=== PATIENT | male | born 1985 | race Caucasian/White ===

== ENCOUNTER 2020-10-12 11:22 | Emergency (ER) | payer BC ==
[~2020-10-12] VITALS: Ht 180.3 cm; Wt 84.4 kg
[2020-10-12 13:13] LABS: VENOUS BASE EXCESS -2.4 (-2.0-2.0); VENOUS HCO3 23.6 MEQ/L (23.0-27.0); VENOUS O2 SATURATION 77.2 % (60.0-80.0); VENOUS PARTIAL PRESSURE CO2 44.8 mmHg (38.0-50.0); VENOUS PARTIAL PRESSURE O2 43.1 mmHg (30.0-50.0); VENOUS PH 7.339 UNITS (7.330-7.430); VENOUS STANDARD HCO3 21.9 MEQ/L; VENOUS TOTAL CO2 24.9 MEQ/L (24.0-28.0)
[2020-10-12 13:15] LABS: BASO % 0.5 % (0.0-1.0); EOS % 0.4 % (0.0-3.0); HEMATOCRIT 52.2 % (42.0-52.0); HEMOGLOBIN 16.7 g/dl (13.5-17.5); LYMPH # 1.1 10^3/uL (1.5-5.0); MEAN CORPUSCULAR HEMOGLOBIN 30.4 pg (27.0-33.0); MEAN CORPUSCULAR VOLUME 95.1 fl (80.0-96.0); MONO # 0.5 10^3/uL (0.0-0.8); MONO % 6.6 % (0.0-5.0); NEUTROPHILS # 6.5 10^3/uL (1.5-8.5); NEUTROPHILS % 79.3 % (36.0-66.0); PLATELET COUNT, AUTOMATED 346 10^3/uL (150-450); RED BLOOD COUNT 5.49 10^6/uL (4.30-6.10); WHITE BLOOD COUNT 8.2 10^3/uL (4.0-10.0)
--- NOTE | 2020-10-12 13:25 | REP ---
INDICATION: Syncope/near-syncope COMPARISON: None. TECHNIQUE: Portable AP view of the chest FINDINGS: The mediastinum and cardiac silhouette are within normal limits for portable technique. The lung de dios are clear without acute consolidation, effusion, or pneumothorax. Skeletal structures are intact. IMPRESSION: No acute cardiopulmonary process appreciated. <Electronically signed by Home Johnson > 10/12/20 [id number]
[2020-10-12 13:26] LABS: INR 0.95; PROTHROMBIN TIME 12.9 SECONDS (12.5-14.3)
[2020-10-12 13:39] LABS: HEMOGLOBIN A1c 5.4 %
[2020-10-12 13:48] LABS: RSV AMPLIFICATION NEGATIVE (NEGATIVE)
[2020-10-12 13:50] LABS: AMPHETAMINES LEVEL URINE NEGATIVE (NEGATIVE); BARBITURATES URINE NEGATIVE (NEGATIVE); BENZODIAZEPINES URINE NEGATIVE (NEGATIVE); CANNABINOIDS URINE NEGATIVE (NEGATIVE); COCAINE METABOLITE URINE NEGATIVE (NEGATIVE); METHADONE URINE NEGATIVE (NEGATIVE); OPIATES URINE NEGATIVE (NEGATIVE); PHENCYCLIDINE URINE NEGATIVE (NEGATIVE)
[2020-10-12 14:09] LABS: BLOOD UREA NITROGEN 9 MG/DL (7-18); CALCIUM LEVEL 9.1 MG/DL (8.5-10.1); CARBON DIOXIDE LEVEL 27 MEQ/L (21-32); CHLORIDE LEVEL 108 MEQ/L (98-107); CPK CREATINE PHOSPHOKINASE 106 U/L (39-308); CREATININE FOR GFR 1.01 MG/DL (0.70-1.30); ETHYL ALCOHOL (ETHANOL) < 0.003 % (0.000-0.010); GLOMERULAR FILTRATION RATE > 60.0 (>60); GLUCOSE, FASTING 98 MG/DL (70-100); MAGNESIUM LEVEL 2.3 MG/DL (1.8-2.4); MB/CK RELATIVE INDEX 0.94 (< OR =4); POTASSIUM SERUM 4.4 MEQ/L (3.5-5.1); SODIUM LEVEL 140 MEQ/L (136-145); THYROID STIMULATING HORMONE 0.906 uIU/ML (0.358-3.740); TROPONIN I < 0.02 NG/ML (< 0.10)
--- NOTE | 2020-10-12 14:10 | REP ---
INDICATION: Syncope COMPARISON: None. TECHNIQUE: Axial noncontrast images from the skull base to the vertex with coronal reformations. This CT examination was performed using the following dose reduction techniques: Automated exposure control, adjustment of mA and/or kv according to the patient's size, and use of iterative reconstruction technique. FINDINGS: The ventricles, sulci, and cisterns are normal in position and appearance. Zepeda-white differentiation is maintained. No acute intracranial hemorrhage, mass/mass effect, pathology or trauma/injury. No evidence for acute infarction. No extra-axial fluid collection. Calvarium is intact. Paranasal sinuses and mastoid air cells are clear. There is subtle low density in the left cerebellopontine level which is likely artifactual as there is no associated mass effect or edema. However, clinical correlation is recommended and if necessary MRI should be considered for further investigation. IMPRESSION: 1. No evidence for acute intracranial pathology or trauma/injury. 2. Vague low-density area along the left cerebellopontine level may be artifactual. Clinical correlation is recommended. If necessary consider follow-up MRI for further investigation. <Electronically signed by Home Johnson > 10/12/20 2051
[2020-10-12 16:09] VITALS: BP 130/80
--- NOTE | 2020-10-13 08:51 | ED PDOC ---
Post-Departure Follow-Up radiology eport facxed to dona m[facility] Barbara Llamas MD Oct 13, 2020 08:51
--- NOTE | 2020-10-13 09:20 | ECGEPIP ---
[facility] - ED Test Date: 2020-10-12 Pat Name: SEGUN LATIF Department: Room: - Gender: Male [place]: SILVANA : 1985 Requested By: Barbara Llamas Order Number: [id number] Reading MD: Barbara Llamas Measurements Intervals [place] Rate: 60 P: 63 ND: 145 QRS: 73 QRSD: 106 T: 14 QT: 403 QTc: 404 Interpretive Statements SINUS RHYTHM POSSIBLE LEFT ATRIAL ENLARGEMENT No prior Electronically Signed on 10-13-2020 9:19:45 EST by Barbara Llamas
== END 2020-10-12 16:11 | disposition home or self-care (01) ==
LOC: M ED 11:22
DX: G62.9 Polyneuropathy, unspecified (principal); F17.210 Nicotine dependence, cigarettes, uncomplicated
CPT/HCPCS: 36415; 70450; 71045; 80048; 80307; 82550; 82553; 82803; 83036; 83735; 84443; 85025; 85610; 87631; 93005; 93041; 99285; G0480

== ENCOUNTER → 2021-05-21 | Outpatient (CLI) | payer BC ==
--- NOTE | 2021-05-21 22:37 | ECHO ---
"ECHOCARDIOGRAM DATE OF PROCEDURE: 05/21/2021 Age: 35 Gender: Male Height: 180 cm Weight: 89 kg REFERRING PHYSICIAN: Dr. Kyara Sinclair INDICATION: Cardiomegaly, palpitations. MEASUREMENTS: | IVS 1.0 cm LV 4.9 cm LVPW 1.0 cm LA 2.6 cm Aorta 3.6 cm Left atrium volume index 14 Mitral E wave velocity 56 A wave 42 E prime septal 9.5 E prime lateral 14.7 FINDINGS: This study is of good technical quality, patient is in sinus rhythm. Normal LV size with normal LV systolic function. Calculated LVEF 59%. Normal RV size and systolic function. Both atria are normal. Aortic, mitral, tricuspid and pulmonic valves were all well seen and appear normal. No pericardial effusion is noted. Inferior vena cava is normal size and appropriately collapses with inspiration indicative of normal central venous pressure. Aortic root, aortic arch and visualized segment of abdominal aorta appear normal. Doppler interrogation reveals competent aortic, mitral, tricuspid and pulmonic valves. Mitral inflow pattern and tissue Doppler imaging of mitral annulus revealed normal diastolic function. CONCLUSIONS: 1. Study is of acceptable technical quality; underlying sinus rhythm. 2. Normal LV size, systolic and diastolic function. Calculated LVEF of 59%. 3. No valvular disease. 4. Normal central venous pressure. 5. Unable to estimate pulmonary artery pressure, but no signs to suggest pulmonary hypertension. 6. Normal echocardiogram."
== END ==
LOC: M CARPUL 08:09
PROVIDERS: ATTEND Physician Assistant
DX: I51.7 Cardiomegaly (principal); R55 Syncope and collapse; R00.2 Palpitations

== ENCOUNTER → 2021-05-28 | Outpatient (CLI) | payer BC ==
[~2021-05-28] MED LIST: PROHANCE 279.3MG/ML 15ML VIAL As Ordered ONE; PROHANCE 279.3MG/ML 5ML VIAL As Ordered ONE
--- NOTE | 2021-05-28 20:19 | REPVR ---
PROCEDURE INFORMATION: Exam: MR Head Without and With Contrast Exam date and time: 05/28/2021 4:46 PM Age: 35 years old Clinical indication: Pain; Headache; Migraine; Aura effect not specified; Additional info: Pre syncope, abn CT scan head, HX migraine TECHNIQUE: Imaging protocol: MR of the head without and with intravenous contrast. Contrast material: PROHANCE; Contrast volume: 18 ml; Contrast route: INTRAVENOUS (IV); COMPARISON: CT Head without contrast 10/12/2020 1:49 PM FINDINGS: Brain: Normal. No acute infarct. No hemorrhage. No significant white matter disease. No edema. There is no abnormal enhancement. Cerebral ventricles: Normal. No ventriculomegaly. Bones/joints: Unremarkable. Paranasal sinuses: Normal as visualized. No acute sinusitis. Mastoid air cells: Normal as visualized. No mastoid effusion. Orbital cavity: Unremarkable. Soft tissues: Unremarkable. IMPRESSION: No acute findings. Electronically signed by: Sukhdev Gregg On 05/28/2021 20:19:17 PM
--- NOTE | 2021-05-28 20:21 | REPVR ---
PROCEDURE INFORMATION: Exam: MRA Head Without Contrast; Arteriography Exam date and time: 05/28/2021 4:46 PM Age: 35 years old Clinical indication: Pain; Headache; Additional info: Pre syncope, abn CT scan head, HX migraine TECHNIQUE: Imaging protocol: Magnetic resonance angiography head without contrast. Exam focused on the arteries. COMPARISON: CT Head without contrast 10/12/2020 1:49 PM FINDINGS: ANTERIOR CIRCULATION: Right internal carotid artery: Intracranial segment is patent with no significant stenosis. No aneurysm. Right middle cerebral artery: No occlusion or significant stenosis. No aneurysm. Right anterior cerebral artery: No occlusion or significant stenosis. No aneurysm. Left internal carotid artery: Intracranial segment is patent with no significant stenosis. No aneurysm. Left middle cerebral artery: No occlusion or significant stenosis. No aneurysm. Left anterior cerebral artery: No occlusion or significant stenosis. No aneurysm. POSTERIOR CIRCULATION: Right vertebral artery: No occlusion or significant stenosis. No aneurysm. Left vertebral artery: No occlusion or significant stenosis. No aneurysm. Basilar artery: No occlusion or significant stenosis. No aneurysm. Right posterior cerebral artery: No occlusion or significant stenosis. No aneurysm. Left posterior cerebral artery: No occlusion or significant stenosis. No aneurysm. IMPRESSION: No stenosis or occlusion. Electronically signed by: Sukhdev Gregg On 05/28/2021 20:21:16 PM
== END ==
LOC: M RAD 14:54
PROVIDERS: ATTEND Physician Assistant
DX: R55 Syncope and collapse (principal); R93.0 Abnormal findings on diagnostic imaging of skull and head, not elsewhere classified; R09.89 Other specified symptoms and signs involving the circulatory and respiratory systems; Z86.69 Personal history of other diseases of the nervous system and sense organs
CPT/HCPCS: 70544; 70553; A9576

== ENCOUNTER → 2024-06-06 | Outpatient (REF) | payer BC ==
[~2024-06-06] MED LIST changes: +CEPH500C PO; +CLAR10CA3 PO; -PROHANCE 279.3MG/ML 15ML VIAL As Ordered ONE; -PROHANCE 279.3MG/ML 5ML VIAL As Ordered ONE
== END ==
LOC: M SFHCDERM 17:10
PROVIDERS: ATTEND Nurse Practitioner Family
DX: L85.9 Epidermal thickening, unspecified (principal)

== ENCOUNTER → 2025-07-26 | Outpatient (CLI) | payer BC | LOC: M ADAMS 13:46 | PROVIDERS: ATTEND Physician Assistant | DX: M54.50 Low back pain, unspecified (principal); M54.6 Pain in thoracic spine ==

== ENCOUNTER → 2025-08-22 | Outpatient (CLI) | payer BC ==
[2025-08-22 16:47] LABS: PLATELET COUNT, AUTOMATED 311 10^3/uL (150-450)
[2025-08-22 17:00] LABS: ALT/SGPT 25 U/L (7.0-40); AST/SGOT 18 U/L (<34); CALCIUM LEVEL 8.8 MG/DL (8.5-10.1); CARBON DIOXIDE LEVEL 31 MMOL/L (20-31); CHLORIDE LEVEL 102 MMOL/L (98-107); CREATININE FOR GFR 0.95 MG/DL (0.70-1.30); GLOMERULAR FILTRATION RATE > 90.0 (>60); POTASSIUM SERUM 4.0 MMOL/L (3.5-5.1); SODIUM LEVEL 139 MMOL/L (136-145)
[2025-08-22 17:25] LABS: INR 0.96
== END ==
LOC: M LABDRWAD 14:35
PROVIDERS: ATTEND Nurse Practitioner Acute Care
DX: I67.1 Cerebral aneurysm, nonruptured (principal)